=== PATIENT | female | born 1955 | race Caucasian/White ===

== ENCOUNTER 2021-02-13 19:24 | Emergency (ER) | payer OTHER ==
[2021-02-13 19:32] VITALS: BP 189/83; PULSE 68; RESP 17; TEMP 98.4
--- NOTE | 2021-02-13 19:45 | ED ---
Upper Extremity HPI - General Chief Complaint: Extremity Injury, Upper Stated Complaint: [facility] L Hand Swelling Time Seen by Provider: 02/13/21 19:34 Source: patient Mode of arrival: ambulatory Limitations: no limitations - History of Present Illness Initial Comments: 65-year-old white female patient well-appearing alert and oriented 4, presents to the emergency room with complaints of left hand swelling and bruising. Patient denies any injury denies any pain. She states that she just noticed that hand was swollen and didn't know why. Patient does state that she takes an aspirin a day to help her sleep. Denies any other medical history or medicines on a daily basis. Patient denies any other bleeding, rashes or pain. Complaint: Injury to:: hand Other Extremity Injury: Hand: Left Other Injuries: none Severity scale (1-10): 0 Associated Symptoms: denies other symptoms - Related Data Allergies Allergy/AdvReac Type Severity Reaction Status Date / Time No Known Allergies Allergy Verified 02/13/21 19:32 Review of Systems ROS Statement: Those systems with pertinent positive or pertinent negative responses have been documented in the HPI. ROS Other: All systems not noted in ROS Statement are negative. Past Medical History Past Medical History: No Reported History History of Any Multi-Drug Resistant Organisms: None Reported Past Surgical History: No Surgical Hx Reported Past Psychological History: No Psychological Hx Reported Smoking Status: Never smoker Past Alcohol Use History: None Reported Past Drug Use History: None Reported General Exam Limitations: no limitations General appearance: alert, in no apparent distress Head exam: Present: atraumatic, normocephalic, normal inspection Eye exam: Present: normal appearance, PERRL, EOMI. Absent: scleral icterus, conjunctival injection, periorbital swelling ENT exam: Present: normal exam, normal oropharynx, mucous membranes moist Neck exam: Present: normal inspection. Absent: tenderness, meningismus, lymphadenopathy Respiratory exam: Present: normal lung sounds bilaterally. Absent: respiratory distress, wheezes, rales, rhonchi, stridor Cardiovascular Exam: Present: regular rate, normal rhythm, normal heart sounds. Absent: systolic murmur, diastolic murmur, rubs, gallop, clicks Extremities exam: Present: full ROM, normal capillary refill. Absent: tenderness, pedal edema, joint swelling, calf tenderness Left Hand Wrist exam: Present: ecchymosis (Hematoma to the dorsal aspect of the left hand) Neuro motor exam: Present: wrist extension intact, thumb opposition intact, thumb IP flexion intact, thumb adduction intact, fingers 2-5 abduction intact Neurosensory exam: Present: radial nerve intact, ulnar nerve intact, median nerve intact Vascular: Present: normal capillary refill, radial pulse. Absent: vascular compromise Back exam: Present: normal inspection, full ROM. Absent: tenderness, CVA tenderness (R), CVA tenderness (L), muscle spasm, paraspinal tenderness, vertebral tenderness, rash noted Neurological exam: Present: alert, oriented X3, CN II-XII intact Psychiatric exam: Present: normal affect, normal mood Skin exam: Present: warm, dry, intact, normal color. Absent: rash, cyanosis, diaphoretic, erythema, petechiae, pallor, mottled Course Vital Signs 02/13/21 19:27 Temperature 98.4 F Pulse Rate 68 Respiratory 17 Rate Blood Pressure 189/83 O2 Sat by Pulse 100 Oximetry Disposition Clinical Impression: Hematoma, Hand swelling Disposition: HOME SELF-CARE Condition: Good Instructions (If sedation given, give patient instructions): Hematoma (ED) Additional Instructions: Rest, ice, wear Denny wrap for compression and elevate at home. Follow-up with primary care doctor in 1 week as needed. Return if any worsening signs of swelling or pain. Is patient prescribed a controlled substance at d/c from ED?: No Referrals: Az Pinzon MD [Primary Care Provider] - 1-2 days Time of Disposition: 19:45
== END 2021-02-13 20:00 | disposition home or self-care (01) ==
LOC: EC 19:24
DX: M79.81 Nontraumatic hematoma of soft tissue (principal)
CPT/HCPCS: 99283